=== PATIENT | male | born 1995 | race Caucasian/White ===

== ENCOUNTER 2019-11-22 14:19 | Emergency (ER) | payer BC ==
[~2019-11-22] VITALS: Ht 177.8 cm; Wt 54.5 kg
[2019-11-22 14:30] VITALS: BP 121/74
== END 2019-11-22 14:57 | disposition home or self-care (01) ==
LOC: ER 14:20
DX: R05 Cough (principal); Z20.828 Contact with and (suspected) exposure to other viral communicable diseases; M79.10 Myalgia, unspecified site; R53.83 Other fatigue
CPT/HCPCS: 36415; 99283; U0003